=== PATIENT | female | born 1970 | race Caucasian/White ===

== ENCOUNTER 2018-02-23 09:52 | Emergency (ER) | payer OTHER ==
--- NOTE | 2018-02-23 10:20 | UC ---
Ear Complaint HPI - HPI Summary HPI Summary: Pt presents with left ear "fullness" for the last 2 days. She tells me that this has been a problem intermittently over the last month or two. She does have a history of bad allergies and wonders if this is related. Takes daily claritin, but does not use a nasal spray. She feels slightly off balance at times. Denies fever, chills, vision changes, headache, dizziness, tinnitus, SOB , chest pain. - History of Current Complaint Chief Complaint: UCEar Stated Complaint: EAR DISCOMFORT Time Seen by Provider: 02/23/18 10:20 Hx Obtained From: Patient Onset/Duration: Gradual Onset Severity Initially: Mild Severity Currently: Mild Pain Intensity: 2 Pain Scale Used: 0-10 Numeric - Allergies/Home Medications Allergies/Adverse Reactions: Allergies Allergy/AdvReac Type Severity Reaction Status Date / Time cefuroxime [From Ceftin] Allergy severe Verified 02/23/18 10:49 stomach distress cheese Allergy eczema Verified 02/23/18 10:49 clarithromycin [From Biaxin] Allergy severe Verified 02/23/18 10:49 stomach distress chocolate Allergy eczema Uncoded 02/23/18 10:49 eggs Allergy eczema Uncoded 02/23/18 10:49 MILK PRODUCTS Allergy ECZEMA Uncoded 06/19/15 06:23 Home Medications: Home Medications Calcium Carbonate [Calcium] 500 mg PO 02/23/18 [History] Cyanocobalamin TAB* [Vitamin B12 TAB*] 500 mcg PO DAILY 02/23/18 [History Confirmed 02/23/18] L.acidoph,Paracasei, B.lactis [Probiotic] 1 each PO 02/23/18 [History] Multivitamin [Multivitamins] 1 cap PO 02/23/18 [History] PMH/Surg Hx/FS Hx/Imm Hx - Additional Past Medical History Additional PMH: Seasonal allergies Previously Healthy: Yes Respiratory History: Asthma - Surgical History Surgical History: Yes Surgery Procedure, Year, and Place: 1993-DEVIATED SEPTUM AND ENLARGED TURBINATES SURGERY- [facility]. 2009-ENLARGED NASAL PASSAGES-[facility] [place]. [facility]-2011- [facility]. [facility] -2013- [place] - Family History Known Family History: Positive: None - Social History Occupation: Employed Full-time Lives: With Family Alcohol Use: Weekly Alcohol Amount: 1-2 PER WEEK Substance Use Type: None Smoking Status (MU): Former Smoker Amount Used/How Often: / PPD X ON AND OFF X 1-2 YEARS Have You Smoked in the Last Year: No When Did the Patient Quit Smoking/Using Tobacco: 1992 - Immunization History Most Recent Influenza Vaccination: 2013 Most Recent Tetanus Shot: NOT UP TO DATE Most Recent Pneumonia Vaccination: HAS NOT HAD Review of Systems Constitutional: Negative Skin: Negative Eyes: Negative ENT: Ear Ache Respiratory: Negative Cardiovascular: Negative Gastrointestinal: Negative Neurovascular: Negative Neurological: Negative Psychological: Negative All Other Systems Reviewed And Are Negative: Yes Physical Exam - Summary Physical Exam Summary: GENERAL: NAD. WDWN. No pain distress. SKIN: No rashes, sores, lesions, or open wounds. HEENT: Head: AT/NC Eyes: EOM intact. Conjunctiva clear without inflammation or discharge. Ears: Hearing grossly normal. LEFT: TM intact without erythema or bulging. At the 5 to 7 o'clock position there is mildly opaque white/yellowish fluid behind the TM. Mild tragus tenderness. No canal edema or drainage. Nose: Nasal mucosa pink and moist. NTTP maxillary and frontal sinus. Throat: Posterior oropharynx without exudates, erythema, or tonsillar enlargement. Uvula midline. NECK: Supple. Nontender. No lymphadenopathy. CHEST: CTAB. No r/r/w. No accessory muscle use. Breathing comfortably and in no distress. CV: RRR. Without m/r/g. Pulses intact. Brisk cap refill. NEURO: Alert. CN II-XII grossly intact. PSYCH: Age appropriate behavior. Triage Information Reviewed: Yes Ear Complaint Course/Dx - Course Course Of Treatment: Left serous otitis media. - Differential Dx/Diagnosis Provider Diagnoses: Left serous otitis media Discharge - Sign-Out/Discharge Documenting (check all that apply): Discharge/Admit/Transfer - Discharge Plan Condition: Stable Disposition: HOME Prescriptions: Azithromycin TAB* [Zithromax TAB (Z-MARY) 250 mg #6 tabs] 2 tab PO .TODAY, THEN 1 DAILY #1 mary Patient Education Materials: Serous Otitis Media (ED) Referrals: Emiliano CHRISTINE,Brandyn Matt [Primary Care Provider] - Additional Instructions: If you develop a fever, shortness of breath, chest pain, new or worsening symptoms - please call your PCP or go to the ED. 1) Use your nasonex daily and continue your daily allergy medications - Billing Disposition and Condition Condition: STABLE Disposition: HOME
[2018-02-23 10:22] VITALS: BP 118/68
== END 2018-02-23 10:43 | disposition home or self-care (01) ==
LOC: UCEAST 09:52
DX: H65.92 Unspecified nonsuppurative otitis media, left ear (principal); J45.909 Unspecified asthma, uncomplicated; Z88.1 Allergy status to other antibiotic agents; Z87.891 Personal history of nicotine dependence
CPT/HCPCS: 99212; G0463